=== PATIENT | female | born 1980 | race Caucasian/White ===

== ENCOUNTER 2017-07-13 13:52 | Emergency (ER) | payer MEDICAID ==
[~2017-07-13] VITALS: Ht 154.9 cm; Wt 68.3 kg
[2017-07-13 13:54] VITALS: BP 115/79
[2017-07-13] MEDS ORDERED: HYDR50CA PO (14:20)
== END 2017-07-13 15:42 | disposition home or self-care (01) ==
LOC: ED 15:35
DX: N63.20 Unspecified lump in the left breast, unspecified quadrant (principal)
CPT/HCPCS: 76642; 99284

== ENCOUNTER 2019-10-24 22:11 | Emergency (ER) | payer MEDICAID ==
[~2019-10-24] VITALS: Ht 154.9 cm; Wt 72.1 kg
[~2019-10-24 22:11] MED LIST: HYDR50CA PO
[2019-10-24 22:15] VITALS: BP 135/82
--- NOTE | 2019-10-24 22:38 | NUR ---
PHYSICAL THERAPY AID: PT. TO ROOM FROM LOBBY AT THIS TIME.
--- NOTE | 2019-10-24 22:55 | NUR ---
PT TO ED WITH CONCERNS FOR STD. NO FEVER OR VOMITING. MALODOROUS VAGINAL DISCHARGE PER PATIENT. PELVIC EXAM PERFORMED BY PA AND SPECIMENDS SENT. UA COLLECTED AND SENT.
[2019-10-24 23:10] LABS: HCG UR SG 1.015 (1.003-1.030); MICROSCOPIC AUTO
[2019-10-24 23:12] LABS: CULTURE INDICATED? YES
[2019-10-24 23:15] LABS: CLUE CELLS NONE SEEN (NONE SEEN); WET PREP WBCS FEW (FEW)
[2019-10-24] MEDS ORDERED: AZITHROMYCIN 500 MG TABLET ONE (23:26)
[2019-10-24] MEDS ORDERED: LIDOCAINE-MPF 1%, 5ML ONE ×2 (23:26→23:31)
[2019-10-24] MEDS ORDERED: CEFTRIAXONE 250 MG ONE ×2 (23:26→23:31)
[2019-10-24] MEDS ORDERED: AZITHROMYCIN 500 MG TABLET PO ONE (23:30)
[2019-10-24] MEDS ORDERED: CEFTRIAXONE 250 MG IM ONE (23:30)
[2019-10-24] MEDS ORDERED: LIDOCAINE 1%, 10ML INFIL ONE (23:30)
== END 2019-10-25 00:02 | disposition home or self-care (01) ==
LOC: ED 23:37
DX: N76.0 Acute vaginitis (principal)
CPT/HCPCS: 81001; 81025; 87086; 87210; 87491; 87591; 87808; 96372; 99283; J0696; J3490